=== PATIENT | female | born 1965 | race Caucasian/White ===

== ENCOUNTER → 2018-02-15 09:55 | Outpatient (CLI) | payer MEDICAID, SELFPAY ==
--- NOTE | 2018-02-15 09:57 | MR_ITS ---
MR abdomen wo con CLINICAL INDICATION: Painful jaundice with nausea ITS.REASON: JAUNDICE ORDERING PHYSICIAN: Allan Dexter MD PATIENT AGE: 52 years Comparison: 01/31/2018 TECHNIQUE: Multiplanar multiecho sequences are performed without contrast. MRCP images also performed FINDINGS: Motion artifact does somewhat obscure fine detail There is a cavitating right lower lobe mass and small effusion. The mass is better demonstrated on the CT scan but measures approximately 3 cm. No focal liver lesions are evident. The spleen, pancreas, adrenal glands, and kidneys have an unremarkable appearance. There is moderate intra and extrahepatic biliary ductal dilatation with common bile duct measuring up to 13 mm in diameter. There are multiple gallstones present and there are stones within the distal aspect of the common bile duct measuring up to 13 mm. IMPRESSION: Cholelithiasis with choledocholithiasis with obstruction of the distal aspect of the common bile duct with both intra and extrahepatic biliary ductal dilatation Cavitating right lower lobe mass with small effusion Significant findings called to Dr. Guerita Smalls's assistant professor of biochemistry on 02/15/2018 12:[address] Dexter was unavailable to take the phone call.
== END ==
PROVIDERS: PCP Family Medicine; Visit Provider Family Medicine
DX: R17 Unspecified jaundice (principal)
CPT/HCPCS: 74181; 76376